=== PATIENT | male | born 1980 | race Caucasian/White ===

== ENCOUNTER 2017-10-23 18:09 | Emergency (ER) | payer OTHER | END 2017-10-23 21:02 | disposition home or self-care (01) | LOC: FTE 18:09 | DX: S69.92XA Unspecified injury of left wrist, hand and finger(s), initial encounter (principal); J45.909 Unspecified asthma, uncomplicated; X58.XXXA Exposure to other specified factors, initial encounter; Y92.89 Other specified places as the place of occurrence of the external cause | CPT/HCPCS: 29125; 73090; 73110-LT; 73130-LT; 99283-25 ==